=== PATIENT | female | born 1995 | race Caucasian/White ===

== ENCOUNTER 2019-12-07 08:00 | Outpatient (CLI) | payer OTHER ==
[2019-12-07 21:30] LABS: CANDIDA GROUP DNA NEGATIVE (NEGATIVE); CANDIDA KRUSEI DNA NEGATIVE (NEGATIVE); TRICHOMONAS VAGINALIS DNA NEGATIVE (NEGATIVE)
== END 2019-12-07 23:59 | disposition home or self-care (01) ==
LOC: LAB.R 08:00
PROVIDERS: ATTEND Nurse Practitioner Obstetrics & Gynecology
DX: R10.2 Pelvic and perineal pain (principal)
CPT/HCPCS: 87661; 87801

== ENCOUNTER 2019-12-29 16:23 | Outpatient (CLI) | payer OTHER ==
--- NOTE | 2019-12-30 00:07 | Ultrasound Report ---
Reason: ACUTE PELVIC PAIN Procedure Date: 12/29/2019 Accession Number: [id number] / [id number] Procedure: US - Pelvic w/Transvaginal CPT Code: Final Report FULL RESULT: EXAM: PELVIC ULTRASOUND EXAM DATE: 12/29/2019 05:13 PM CLINICAL HISTORY: Acute pelvic pain. COMPARISON: None. TECHNIQUE: Real-time transabdominal pelvic scan performed to identify the uterus and adnexa and as an overview of other pelvic structures, followed by transvaginal scan to provide greater detail of the uterus and adnexa, with static image documentation. FINDINGS: Uterus: 7.7 x 3.7 x 4.7 cm, volume 70.2 cc. Anteverted position. Normal overall size and echotexture. Possible septate configuration of the uterus. Masses: None. Endometrium: 3 mm. Normal. Cervix: Unremarkable. Right Ovary: 3.6 x 1.4 x 2.9 cm, volume 7.6 cc. Normal echotexture and blood flow. Left Ovary: 2.7 x 1.1 x 2 cm, volume 2.9 cc. Normal echotexture and blood flow. Free Fluid: None. Other: None. IMPRESSION: 1. No uterine mass. Possible septate configuration of the uterus is not well-seen. 2. No endometrial mass or polyp. 3. Normal bilateral ovaries and adnexa. No sonographic features concerning for polycystic ovarian syndrome. [facility]
== END 2019-12-29 16:24 | disposition home or self-care (01) ==
LOC: DI 16:23
PROVIDERS: ATTEND Nurse Practitioner Obstetrics & Gynecology
DX: R10.2 Pelvic and perineal pain (principal)
CPT/HCPCS: 76830; 76856